=== PATIENT | female | born 1975 | race Caucasian/White ===

== ENCOUNTER 2017-03-09 10:41 | Emergency (ER) | payer SELFPAY, OTHER ==
[2017-03-09] MEDS: LIDOCAINE WITH 8.4% SOD BICARB 3 ML DISP.SYRIN. IJ (11:23)
== END 2017-03-09 11:29 | disposition home or self-care (01) ==
LOC: ER 10:41
DX: N76.2 Acute vulvitis (principal); Z88.1 Allergy status to other antibiotic agents; Z88.6 Allergy status to analgesic agent; Z88.5 Allergy status to narcotic agent
CPT/HCPCS: 99283

== ENCOUNTER 2017-08-15 14:15 | Emergency (ER) | payer SELFPAY ==
[2017-08-15] MEDS: traMADol 50 MG TABLET PO (15:00)
== END 2017-08-15 15:08 | disposition home or self-care (01) ==
LOC: ER 14:15
DX: N76.2 Acute vulvitis (principal); F41.9 Anxiety disorder, unspecified; Z88.5 Allergy status to narcotic agent; Z88.1 Allergy status to other antibiotic agents
CPT/HCPCS: 99283